=== PATIENT | female | born 1965 | race Caucasian/White ===

== ENCOUNTER 2021-07-09 13:33 | Inpatient (IN) | payer BC ==
[~2021-07-09] VITALS: Ht 160 cm; Wt 56.9 kg
[2021-07-09 15:37] VITALS: BP 129/79
[2021-07-09 15:55] VITALS: BP 129/79
[2021-07-09] MEDS ORDERED: COR25 PO (16:30)
[2021-07-09] MEDS ORDERED: DEXTROSE 50% WATER 50ML SYRINGE IV PRN (16:30)
[2021-07-09] MEDS ORDERED: MORPHINE SULFATE 2 MG/ML CPJ (NOT FOR IM USE) IV PRN (16:30)
[2021-07-09] MEDS ORDERED: DOCUSATE SODIUM 100MG CAPSULE PO PRN (16:30)
[2021-07-09] MEDS ORDERED: MAGNESIUM/ALUMINUM HYDROXIDE/SIMETHICONE 30ML UDC PO PRN (16:30)
[2021-07-09] MEDS ORDERED: ZOLPIDEM TARTRATE 5MG TABLET PO PRN (16:30)
[2021-07-09] MEDS ORDERED: AMLO5TAB88 PO (16:30)
[2021-07-09] MEDS ORDERED: ACETAMINOPHEN 325MG TABLET PO PRN ×2 (16:30)
[2021-07-09] MEDS ORDERED: ONDANSETRON HCL 4MG/2ML INJ IV PRN (16:30)
[2021-07-09] MEDS ORDERED: NITROGLYCERIN 0.4MG TABLET SL SL PRN ×2 (16:30→19:00)
[2021-07-09] MEDS ORDERED: BENA40TA9 PO (16:30)
[2021-07-09] MEDS ORDERED: SITA1TAB6 PO (16:30)
[2021-07-09] MEDS ORDERED: GUAIFENESIN 200MG/10ML SUGAR FREE UDC PO PRN (16:30)
[2021-07-09] MEDS ORDERED: CLONIDINE 0.1MG TABLET PO PRN (16:30)
[2021-07-09] MEDS ORDERED: LOVA40TA73 PO (16:30)
[2021-07-09] MEDS ORDERED: EMPA10TA PO (16:30)
[2021-07-09] MEDS ORDERED: IPRATROPIUM/ALBUTEROL 0.5-3(2.5)MG/3ML NEB NEB PRN (16:30)
[2021-07-09] MEDS: BLOOD SUGAR DIAGNOSTIC STRIP TEST SCH ×2 (16:50→21:00)
[2021-07-09] MEDS ORDERED: CARVEDILOL 25 MG PO SCH (17:00)
[2021-07-09 17:16] LABS: BASOPHILS % 1.1 % (0.0-2.0); EOSINOPHILS % 2.4 % (0.0-5.0); HEMATOCRIT. 41.3 % (36.0-48.0); HEMOGLOBIN. 13.8 g/dL (12.0-16.0); LYMPHOCYTES % 29.2 % (20.0-50.0); MEAN CORPUSCULAR VOLUME 83.5 fL (81.0-99.0); MEAN PLATELET VOLUME 9.3 fl (7.4-10.4); MONOCYTES % 9.7 % (2.0-8.0); NEUTROPHILS % 57.6 % (40.0-76.0); PLATELET 179 x1000/uL (130-400); RED BLOOD CELL COUNT 4.94 mill/uL (4.2-5.4)
[2021-07-09] MEDS: INSULIN LISPRO 100 UNITS/ML SUBCUT SCH ×2 (17:20→21:00)
[2021-07-09 17:26] LABS: INR 1.1; PROTHROMBIN TIME 11.6 sec (9.6-11.0)
[2021-07-09 18:13] LABS: CHLORIDE 107 mEq/L (98-107)
[2021-07-09 18:32] VITALS: BP 130/74
[2021-07-09] MEDS ORDERED: ALPRAZOLAM 0.25 MG TABLET PO PRN (19:00)
[2021-07-09 20:00] VITALS: BP 123/70
[2021-07-09] MEDS ORDERED: ENOXAPARIN 40MG/0.4ML SYR SUBCUT SCH (20:00)
[2021-07-09] MEDS: CARVEDILOL 12.5MG TABLET PO SCH (20:59)
[2021-07-09] MEDS: FAMOTIDINE 20MG TABLET PO SCH (21:00)
[2021-07-09] MEDS: ALLOPURINOL 300 MG TABLET PO SCH (21:00)
[2021-07-09] MEDS ORDERED: CHLORHEXIDINE GLUCONATE 4% EXTERNAL USE TOP SCH (21:00)
[2021-07-09] MEDS ORDERED: DOCUSATE SODIUM 100MG CAPSULE PO SCH (21:00)
[2021-07-09] MEDS ORDERED: BISACODYL 10MG SUPP PR PRN (21:00)
[2021-07-09] MEDS ORDERED: ASCORBIC ACID 500 MG TABLET PO SCH (21:00)
[2021-07-09] MEDS ORDERED: DOBUTAMINE 250 MG in DEXT 5% WATER 230 ML IV NR (22:45)
[2021-07-09] MEDS ORDERED: PAPAVERINE HCL 180MG in SODIUM CHLORIDE 0.9% 24ML IV NR (22:45)
[2021-07-09] MEDS ORDERED: DEL NIDO ELECTROLYTE-S(PH 7.4) 1,000 ML IV NR (22:45)
[2021-07-09] MEDS ORDERED: NOREPINEPHRINE 8 MG in DEXT 5% WATER 242 ML IV NR (22:45)
[2021-07-10] VITALS (42 sets, daily range): BP systolic 0–195; BP diastolic 0–90
[2021-07-10] MEDS ORDERED: AMINOCAPROIC ACID 5,000 MG in SODIUM CHLORIDE 0.9% 230 ML IV NR (01:00)
[2021-07-10] MEDS ORDERED: DEL NIDO ELECTROLYTE-S(PH 7.4) 1,000 ML IV NR (01:00)
[2021-07-10] MEDS ORDERED: CEFAZOLIN 2,000 MG in DEXT 5% WATER 100 ML IV NR (01:00)
[2021-07-10] MEDS ORDERED: EPINEPHRINE 5 MG in DEXT 5% WATER 245 ML IV NR (01:00)
[2021-07-10] MEDS ORDERED: BLOOD SUGAR DIAGNOSTIC STRIP TEST ONE (04:00)
[2021-07-10] MEDS ORDERED: CEFAZOLIN 2,000 MG in DEXT 5% WATER 100 ML IV ONE (05:00)
[2021-07-10] MEDS ORDERED: CHLORHEXIDINE GLUCONATE 4% EXTERNAL USE TOP SCH (06:00)
[2021-07-10] MEDS ORDERED: THROMBIN (BOVINE) 5000 UNITS/VIAL TOP ONE ×3 (06:15→06:17)
[2021-07-10] MEDS ORDERED: SKIN ADHESIVE 0.7 GM EA TOP ONE (06:15)
[2021-07-10] MEDS: ALLOPURINOL 300 MG TABLET PO SCH (06:16)
[2021-07-10] MEDS ORDERED: POLYMYXIN B SULFATE 500000 UNITS/VIAL ONE (06:17)
[2021-07-10] MEDS ORDERED: NICARDIPINE 40MG/200ML PREMIX 200 ML IV ONE (06:29)
[2021-07-10] MEDS ORDERED: DOPAMINE 400MG/250ML PREMIX 250 ML IV ONE (06:29)
[2021-07-10] MEDS: BLOOD SUGAR DIAGNOSTIC STRIP TEST SCH ×12 (06:50→23:15)
[2021-07-10] MEDS ORDERED: MORPHINE SULFATE/PF 1MG/ML 10ML AMP ONE (07:10)
[2021-07-10] MEDS: INSULIN LISPRO 100 UNITS/ML SUBCUT SCH (07:20)
[2021-07-10] MEDS ORDERED: PROPOFOL 10MG/ML 100ML 100 ML IV ONE (07:56)
[2021-07-10] MEDS ORDERED: AMINOCAPROIC ACID 250 MG/ML 20ML VIAL ONE (07:57)
[2021-07-10] MEDS ORDERED: CALCIUM CHLORIDE 1GM/10ML SYR IV ONE ×2 (07:57→11:27)
[2021-07-10] MEDS ORDERED: POTASSIUM CHLORIDE 40MEQ/20ML INJ IV ONE (08:01)
[2021-07-10] MEDS ORDERED: HEPARIN 1000 UNITS/ML 10ML ONE ×2 (08:16→09:17)
[2021-07-10] MEDS ORDERED: ASPIRIN 325MG EC TABLET PO SCH (09:00)
[2021-07-10] MEDS: AMLODIPINE 5MG TABLET PO SCH (09:00)
[2021-07-10] MEDS ORDERED: MEDICATION NOT ON FORMULARY EA (Benazepril Hcl 40 MG) PO SCH (09:00)
[2021-07-10] MEDS: FAMOTIDINE 20MG TABLET PO SCH (09:00)
[2021-07-10] MEDS: BENAZEPRIL 10MG TABLET PO SCH (09:00)
[2021-07-10] MEDS: ASPIRIN 81MG EC TABLET PO SCH (09:00)
[2021-07-10] MEDS: CARVEDILOL 12.5MG TABLET PO SCH (09:00)
[2021-07-10] MEDS ORDERED: VECURONIUM BROMIDE 10 MG/VIAL IV ONE (09:35)
[2021-07-10] MEDS ORDERED: DEXAMETHASONE 4MG/ML 1ML VIAL ONE (09:35)
[2021-07-10] MEDS ORDERED: ROCURONIUM BROMIDE 10MG/ML VIAL 5ML IV ONE (09:35)
[2021-07-10] MEDS ORDERED: KCL 10MEQ/50ML PREMIX 150 ML IV PRN (10:45)
[2021-07-10] MEDS ORDERED: MAGNESIUM 2 G PREMIX 50 ML IV PRN ×2 (10:45→13:15)
[2021-07-10] MEDS ORDERED: MAGNESIUM SULFATE 3 GM in DEXT 5% WATER 100 ML IV PRN ×2 (10:45→13:15)
[2021-07-10] MEDS ORDERED: PROTAMINE SULFATE 10MG/ML VIAL 25ML IV ONE (11:27)
[2021-07-10] MEDS ORDERED: DEXMEDETOMIDINE 400 MCG/100 ML 100 ML IV ONE (12:00)
[2021-07-10] MEDS ORDERED: BUPIVACAINE HCL/PF 0.25% (2.5MG/ML) 10ML ONE (12:03)
[2021-07-10] MEDS ORDERED: GLYCOPYRROLATE 0.2 MG/ML 2ML VIAL ONE (12:17)
[2021-07-10] MEDS ORDERED: NEOSTIGMINE METHYLSULFATE 1MG/ML 10 ML VIAL ONE (12:17)
[2021-07-10 12:37] LABS: BASOPHILS % 0.2 % (0.0-2.0); EOSINOPHILS % 0.6 % (0.0-5.0); HEMATOCRIT. 28.4 % (36.0-48.0); HEMOGLOBIN. 9.8 g/dL (12.0-16.0); LYMPHOCYTES % 12.2 % (20.0-50.0); MEAN CORPUSCULAR HEMOGLOBIN 28.4 pg (28.0-32.0); MEAN CORPUSCULAR VOLUME 82.1 fL (81.0-99.0); MEAN PLATELET VOLUME 9.7 fl (7.4-10.4); MONOCYTES % 6.8 % (2.0-8.0); NEUTROPHILS % 80.2 % (40.0-76.0); PLATELET 129 x1000/uL (130-400); RED BLOOD CELL COUNT 3.45 mill/uL (4.2-5.4)
[2021-07-10] MEDS ORDERED: ALBUTEROL 90MCG/PUFF 17GM INHALER INH ONE (12:40)
[2021-07-10 12:57] LABS: INR 1.1; PARTIAL THROMBOPLASTIN TIME 34.9 sec (23.4-31.0); PROTHROMBIN TIME 12.2 sec (9.6-11.0)
[2021-07-10] MEDS ORDERED: OXYCODONE HCL/ACETAMINOPHEN 5/325MG TABLET PO PRN ×2 (13:15)
[2021-07-10] MEDS: DOCUSATE SODIUM 100MG CAPSULE PO SCH ×2 (13:15→18:08)
[2021-07-10] MEDS ORDERED: DEXTROSE 50% WATER 50ML SYRINGE IV PRN ×2 (13:15)
[2021-07-10] MEDS ORDERED: SODIUM CHLORIDE 0.9% 500 ML IV PRN (13:15)
[2021-07-10] MEDS ORDERED: ACETAMINOPHEN 325MG TABLET PO PRN (13:15)
[2021-07-10] MEDS ORDERED: MAGNESIUM 1 G PREMIX 100 ML IV PRN (13:15)
[2021-07-10] MEDS ORDERED: MORPHINE SULFATE 2 MG/ML CPJ (NOT FOR IM USE) IV PRN (13:15)
[2021-07-10] MEDS ORDERED: ONDANSETRON HCL 4MG/2ML INJ IV PRN (13:15)
[2021-07-10] MEDS ORDERED: FUROSEMIDE 20MG/2ML VIAL ONE (13:17)
[2021-07-10 13:26] LABS: BG BASE EXCESS -1.5 mmol/L (-2.0-2.0); BG CARBOXYHEMOGLOBIN 0.7 % (0.5-1.5); BG DEOXYHEMOGLOBIN 19.1 % (0.0-5.0); BG HCO3 ACT 24.6 mmol/L (22.0-26.0); BG METHEMOGLOBIN 0.4 % (0.0-1.5); BG OXYGEN SATURATION 80.7 % (92.0-98.5); BG OXYHEMOGLOBIN 79.8 % (94.0-97.0); BG PCO2 46.9 mmHg (35.0-45.0); BG PH 7.337 (7.350-7.450); BG SAMPLE SITE ALINE; BG TOTAL HEMOGLOBIN 11.3 g/dL (12.0-18.0); BG VENT MODE MASK - BIPAP
[2021-07-10] MEDS: IPRATROPIUM/ALBUTEROL 0.5-3(2.5)MG/3ML NEB HHN SCH ×2 (13:30→20:51)
[2021-07-10 13:35] LABS: BASOPHILS % 0.5 % (0.0-2.0); EOSINOPHILS % 0.2 % (0.0-5.0); HEMATOCRIT. 30.2 % (36.0-48.0); HEMOGLOBIN. 10.3 g/dL (12.0-16.0); LYMPHOCYTES % 9.1 % (20.0-50.0); MEAN CORPUSCULAR HEMOGLOBIN 28.1 pg (28.0-32.0); MEAN CORPUSCULAR VOLUME 82.5 fL (81.0-99.0); MEAN PLATELET VOLUME 9.4 fl (7.4-10.4); MONOCYTES % 6.3 % (2.0-8.0); NEUTROPHILS % 83.9 % (40.0-76.0); PLATELET 131 x1000/uL (130-400); RED BLOOD CELL COUNT 3.66 mill/uL (4.2-5.4)
[2021-07-10 13:42] LABS: CHLORIDE 114 mEq/L (98-107)
[2021-07-10 13:50] LABS: PHOSPHORUS 2.8 mg/dL (2.5-4.9)
[2021-07-10 13:51] LABS: LDL CHOLESTEROL 49 mg/dL (5-100)
[2021-07-10 13:53] LABS: HDL CHOLESTEROL 47 mg/dL (40-59)
[2021-07-10] MEDS: MAGNESIUM HYDROXIDE 400MG/5ML 30ML UDC PO SCH ×3 (14:00→22:42)
[2021-07-10 14:26] LABS: BG BASE EXCESS -2.9 mmol/L (-2.0-2.0); BG CARBOXYHEMOGLOBIN 0.5 % (0.5-1.5); BG DEOXYHEMOGLOBIN 7.1 % (0.0-5.0); BG FRACTION INSPIRED OXYGEN 100; BG HCO3 ACT 22.9 mmol/L (22.0-26.0); BG METHEMOGLOBIN 0.3 % (0.0-1.5); BG OXYGEN SATURATION 92.8 % (92.0-98.5); BG OXYHEMOGLOBIN 92.1 % (94.0-97.0); BG PCO2 44.1 mmHg (35.0-45.0); BG PH 7.334 (7.350-7.450); BG PO2 74.2 mmHg (75.0-100.0); BG SAMPLE SITE ALINE; BG TOTAL HEMOGLOBIN 11.7 g/dL (12.0-18.0); BG VENT MODE MASK - BIPAP
[2021-07-10] MEDS: DOPAMINE 400MG/250ML PREMIX 250 ML IV PRN (14:27)
[2021-07-10] MEDS: DEXT 5%/0.45% NACL 1000ML 1,000 ML IV SCH (14:27)
[2021-07-10] MEDS: INSULIN REGULAR (DRIP) 100 UNITS in SODIUM CHLORIDE 0.9% 99 ML IV NR ×2 (14:28→22:23)
[2021-07-10] MEDS: ALBUMIN HUMAN 12.5G/250ML (5%) IV PRN (15:42)
[2021-07-10 16:06] LABS: BG BASE EXCESS -1.7 mmol/L (-2.0-2.0); BG CARBOXYHEMOGLOBIN 0.3 % (0.5-1.5); BG DEOXYHEMOGLOBIN 1.1 % (0.0-5.0); BG HCO3 ACT 23.4 mmol/L (22.0-26.0); BG METHEMOGLOBIN 0.6 % (0.0-1.5); BG OXYGEN SATURATION 98.9 % (92.0-98.5); BG PCO2 41.4 mmHg (35.0-45.0); BG PH 7.371 (7.350-7.450); BG PO2 285.1 mmHg (75.0-100.0); BG SAMPLE SITE ALINE; BG TOTAL HEMOGLOBIN 11.1 g/dL (12.0-18.0); BG VENT MODE MASK - BIPAP
[2021-07-10] MEDS: CEFAZOLIN 1000MG PREMIX 50 ML IV SCH (16:09)
[2021-07-10 17:59] LABS: BG BASE EXCESS -2.2 mmol/L (-2.0-2.0); BG DEOXYHEMOGLOBIN 4.9 % (0.0-5.0); BG FRACTION INSPIRED OXYGEN 40; BG HCO3 ACT 23.3 mmol/L (22.0-26.0); BG METHEMOGLOBIN 0.4 % (0.0-1.5); BG OXYGEN SATURATION 95.1 % (92.0-98.5); BG OXYHEMOGLOBIN 94.7 % (94.0-97.0); BG PCO2 43.3 mmHg (35.0-45.0); BG PH 7.349 (7.350-7.450); BG PO2 85.2 mmHg (75.0-100.0); BG SAMPLE SITE ALINE; BG TOTAL HEMOGLOBIN 9.8 g/dL (12.0-18.0); BG VENT MODE MASK - VENTI
[2021-07-10] MEDS ORDERED: ALBUMIN HUMAN 12.5G/250ML (5%) IV NR (18:45)
[2021-07-10 19:05] LABS: HEMATOCRIT. 26.6 % (36.0-48.0); HEMOGLOBIN. 9.3 g/dL (12.0-16.0); MEAN CORPUSCULAR VOLUME 83.3 fL (81.0-99.0); MEAN PLATELET VOLUME 10.1 fl (7.4-10.4); PLATELET 96 x1000/uL (130-400); RED BLOOD CELL COUNT 3.19 mill/uL (4.2-5.4); RED CELL DISTRIBUTION WIDTH 13.8 % (11.6-14.6)
[2021-07-10 19:24] LABS: CHLORIDE 114 mEq/L (98-107); PHOSPHORUS 3.9 mg/dL (2.5-4.9)
[2021-07-10] MEDS: KCL 10MEQ/50ML PREMIX 100 ML IV PRN (20:02)
[2021-07-10 20:05] LABS: PLATELET ESTIMATE DECREASED
[2021-07-11] VITALS (111 sets, daily range): BP systolic 79–169; BP diastolic 34–84
[2021-07-11] MEDS: BLOOD SUGAR DIAGNOSTIC STRIP TEST SCH ×18 (00:15→22:00)
[2021-07-11] MEDS: CEFAZOLIN 1000MG PREMIX 50 ML IV SCH ×3 (01:15→16:12)
[2021-07-11] MEDS: MAGNESIUM HYDROXIDE 400MG/5ML 30ML UDC PO SCH ×4 (02:00→15:01)
[2021-07-11] MEDS: ALBUMIN HUMAN 12.5G/250ML (5%) IV PRN (02:09)
[2021-07-11] MEDS: IPRATROPIUM/ALBUTEROL 0.5-3(2.5)MG/3ML NEB HHN SCH ×5 (02:25→20:26)
[2021-07-11 05:01] LABS: BG BASE EXCESS -1.9 mmol/L (-2.0-2.0); BG CARBOXYHEMOGLOBIN 0.3 % (0.5-1.5); BG DEOXYHEMOGLOBIN 10.7 % (0.0-5.0); BG FRACTION INSPIRED OXYGEN 50; BG HCO3 ACT 22.1 mmol/L (22.0-26.0); BG METHEMOGLOBIN 0.3 % (0.0-1.5); BG OXYGEN SATURATION 89.2 % (92.0-98.5); BG OXYHEMOGLOBIN 88.7 % (94.0-97.0); BG PCO2 34.6 mmHg (35.0-45.0); BG PH 7.423 (7.350-7.450); BG PO2 58.8 mmHg (75.0-100.0); BG SAMPLE SITE ALINE; BG TOTAL HEMOGLOBIN 9.6 g/dL (12.0-18.0); BG VENT MODE MASK - VENTI
[2021-07-11 05:45] LABS: HEMATOCRIT. 23.2 % (36.0-48.0); HEMOGLOBIN. 7.9 g/dL (12.0-16.0); MEAN CORPUSCULAR VOLUME 82.2 fL (81.0-99.0); MEAN PLATELET VOLUME 10.3 fl (7.4-10.4); PLATELET 86 x1000/uL (130-400); RED BLOOD CELL COUNT 2.82 mill/uL (4.2-5.4); RED CELL DISTRIBUTION WIDTH 14.1 % (11.6-14.6)
[2021-07-11 05:46] LABS: CHLORIDE 111 mEq/L (98-107)
[2021-07-11 05:52] LABS: PHOSPHORUS 4.1 mg/dL (2.5-4.9)
[2021-07-11 08:05] LABS: PLATELET ESTIMATE DECREASED
[2021-07-11] MEDS: FAMOTIDINE 20MG/2ML VIAL IV SCH (08:41)
[2021-07-11] MEDS: BENAZEPRIL 10MG TABLET PO SCH (08:49)
[2021-07-11] MEDS: AMLODIPINE 5MG TABLET PO SCH (08:50)
[2021-07-11 08:54] LABS: BG BASE EXCESS -0.8 mmol/L (-2.0-2.0); BG CARBOXYHEMOGLOBIN 0.3 % (0.5-1.5); BG DEOXYHEMOGLOBIN 6.3 % (0.0-5.0); BG FRACTION INSPIRED OXYGEN 50; BG HCO3 ACT 22.8 mmol/L (22.0-26.0); BG METHEMOGLOBIN 0.3 % (0.0-1.5); BG OXYGEN SATURATION 93.7 % (92.0-98.5); BG OXYHEMOGLOBIN 93.1 % (94.0-97.0); BG PCO2 33.2 mmHg (35.0-45.0); BG PH 7.455 (7.350-7.450); BG PO2 68.7 mmHg (75.0-100.0); BG SAMPLE SITE ALINE; BG VENT MODE MASK - SIMPLE
[2021-07-11] MEDS: KCL 10MEQ/50ML PREMIX 100 ML IV PRN ×2 (08:54→21:41)
[2021-07-11] MEDS: ASPIRIN 81MG EC TABLET PO SCH ×2 (09:00→12:12)
[2021-07-11] MEDS: DOCUSATE SODIUM 100MG CAPSULE PO SCH ×2 (09:00→18:05)
[2021-07-11] MEDS: DEXT 5%/0.45% NACL 1000ML 1,000 ML IV SCH (09:23)
[2021-07-11] MEDS ORDERED: FUROSEMIDE 20MG/2ML VIAL IVP NR (13:00)
[2021-07-11] MEDS: IRON SUCROSE COMPLEX 100 MG/5 ML ML IV SCH (13:40)
[2021-07-11] MEDS ORDERED: BLOOD SUGAR DIAGNOSTIC STRIP TEST SCH (14:00)
[2021-07-11 17:05] LABS: BG BASE EXCESS 1.4 mmol/L (-2.0-2.0); BG CARBOXYHEMOGLOBIN 0.3 % (0.5-1.5); BG DEOXYHEMOGLOBIN 4.5 % (0.0-5.0); BG FRACTION INSPIRED OXYGEN 100; BG HCO3 ACT 24.8 mmol/L (22.0-26.0); BG METHEMOGLOBIN 0.5 % (0.0-1.5); BG OXYGEN SATURATION 95.5 % (92.0-98.5); BG OXYHEMOGLOBIN 94.7 % (94.0-97.0); BG PCO2 33.9 mmHg (35.0-45.0); BG PH 7.482 (7.350-7.450); BG PO2 81.1 mmHg (75.0-100.0); BG SAMPLE SITE ALINE; BG TOTAL HEMOGLOBIN 8.7 g/dL (12.0-18.0); BG VENT MODE MASK - NRB
[2021-07-11 17:19] LABS: BASOPHILS % 0.3 % (0.0-2.0); HEMATOCRIT. 23.8 % (36.0-48.0); HEMOGLOBIN. 8.1 g/dL (12.0-16.0); LYMPHOCYTES % 13.5 % (20.0-50.0); MEAN CORPUSCULAR HEMOGLOBIN 28.4 pg (28.0-32.0); MEAN CORPUSCULAR VOLUME 83.7 fL (81.0-99.0); MEAN PLATELET VOLUME 9.9 fl (7.4-10.4); MONOCYTES % 4.8 % (2.0-8.0); NEUTROPHILS % 81.4 % (40.0-76.0); PLATELET 79 x1000/uL (130-400); RED BLOOD CELL COUNT 2.85 mill/uL (4.2-5.4); RED CELL DISTRIBUTION WIDTH 14.3 % (11.6-14.6)
[2021-07-11 17:23] LABS: CHLORIDE 104 mEq/L (98-107)
[2021-07-11] MEDS ORDERED: FUROSEMIDE 40MG/4ML VIAL IVP NR (18:30)
[2021-07-11] MEDS ORDERED: EPOETIN ALFA-EPBX 4,000 UNIT/ML VIAL SUBCUT SCH ×2 (21:00)
[2021-07-11] MEDS: INSULIN REGULAR 100U/100ML PMX 100 ML IV SCH (22:45)
[2021-07-12] VITALS (123 sets, daily range): BP systolic 92–161; BP diastolic 41–87
[2021-07-12] MEDS: IPRATROPIUM/ALBUTEROL 0.5-3(2.5)MG/3ML NEB HHN SCH ×6 (00:05→20:57)
[2021-07-12] MEDS: BLOOD SUGAR DIAGNOSTIC STRIP TEST SCH ×12 (02:00→22:00)
[2021-07-12] MEDS: DEXT 5%/0.45% NACL 1000ML 1,000 ML IV SCH ×2 (05:18→08:13)
[2021-07-12 06:09] LABS: BASOPHILS % 0.3 % (0.0-2.0); EOSINOPHILS % 0.1 % (0.0-5.0); HEMATOCRIT. 22.8 % (36.0-48.0); HEMOGLOBIN. 7.7 g/dL (12.0-16.0); LYMPHOCYTES % 13.2 % (20.0-50.0); MEAN CORPUSCULAR HEMOGLOBIN 28.4 pg (28.0-32.0); MEAN CORPUSCULAR VOLUME 84.1 fL (81.0-99.0); NEUTROPHILS % 74.4 % (40.0-76.0); PLATELET 92 x1000/uL (130-400); RED BLOOD CELL COUNT 2.71 mill/uL (4.2-5.4); RED CELL DISTRIBUTION WIDTH 14.3 % (11.6-14.6)
[2021-07-12 06:17] LABS: CHLORIDE 108 mEq/L (98-107)
[2021-07-12 06:24] LABS: PHOSPHORUS 2.9 mg/dL (2.5-4.9)
[2021-07-12] MEDS: MAGNESIUM 1 G PREMIX 100 ML IV PRN (07:23)
[2021-07-12] MEDS ORDERED: KCL 20MEQ/100ML PREMIX 100 ML IV NR (07:30)
[2021-07-12] MEDS: DOPAMINE 400MG/250ML PREMIX 250 ML IV PRN (07:41)
[2021-07-12] MEDS ORDERED: FUROSEMIDE 40MG/4ML VIAL IVP SCH ×2 (08:15→15:00)
[2021-07-12 08:59] LABS: BG BASE EXCESS 1.5 mmol/L (-2.0-2.0); BG DEOXYHEMOGLOBIN 7.9 % (0.0-5.0); BG FRACTION INSPIRED OXYGEN 100; BG HCO3 ACT 25.1 mmol/L (22.0-26.0); BG METHEMOGLOBIN 0.2 % (0.0-1.5); BG OXYGEN SATURATION 92.1 % (92.0-98.5); BG OXYHEMOGLOBIN 91.9 % (94.0-97.0); BG PCO2 35.1 mmHg (35.0-45.0); BG PH 7.472 (7.350-7.450); BG PO2 68.2 mmHg (75.0-100.0); BG SAMPLE SITE ALINE; BG TOTAL HEMOGLOBIN 8.3 g/dL (12.0-18.0); BG VENT MODE MASK - NRB
[2021-07-12] MEDS: BENAZEPRIL 10MG TABLET PO SCH (09:00)
[2021-07-12] MEDS: AMLODIPINE 5MG TABLET PO SCH (09:00)
[2021-07-12] MEDS: DOCUSATE SODIUM 100MG CAPSULE PO SCH ×2 (09:50→17:33)
[2021-07-12] MEDS: ASPIRIN 81MG EC TABLET PO SCH (09:50)
[2021-07-12] MEDS: FAMOTIDINE 20MG/2ML VIAL IV SCH (09:50)
[2021-07-12] MEDS: ACETAMINOPHEN 325MG TABLET PO PRN (10:29)
[2021-07-12] MEDS: IRON SUCROSE COMPLEX 100 MG/5 ML ML IV SCH (13:19)
[2021-07-12] MEDS: CLOPIDOGREL 75MG TABLET PO SCH (19:19)
[2021-07-12] MEDS: LACTULOSE 20G/30ML UDC PO SCH (19:19)
[2021-07-12 21:20] LABS: HEMATOCRIT 34.1 % (36.0-48.0); HEMOGLOBIN 11.6 g/dL (12.0-16.0); MEAN CORPUSCULAR HEMOGLOBIN 28.4 pg (28.0-32.0); MEAN CORPUSCULAR VOLUME 83.4 fL (81.0-99.0); PLATELET 94 x1000/uL (130-400); RED BLOOD CELL COUNT 4.09 mill/uL (4.2-5.4); RED CELL DISTRIBUTION WIDTH 14.2 % (11.6-14.6)
[2021-07-12 21:29] LABS: CHLORIDE 105 mEq/L (98-107)
[2021-07-12] MEDS: INSULIN REGULAR 100U/100ML PMX 100 ML IV SCH (22:59)
[2021-07-13] VITALS (76 sets, daily range): BP systolic 96–177; BP diastolic 44–93
[2021-07-13] MEDS: KCL 10MEQ/50ML PREMIX 200 ML IV PRN (01:01)
[2021-07-13] MEDS: DEXT 5%/0.45% NACL 1000ML 1,000 ML IV SCH (01:04)
[2021-07-13] MEDS: BLOOD SUGAR DIAGNOSTIC STRIP TEST SCH ×8 (02:00→21:12)
[2021-07-13] MEDS: LACTULOSE 20G/30ML UDC PO SCH ×6 (04:00→20:00)
[2021-07-13] MEDS: IPRATROPIUM/ALBUTEROL 0.5-3(2.5)MG/3ML NEB HHN SCH ×4 (04:27→21:18)
[2021-07-13 07:53] LABS: BASOPHILS % 0.2 % (0.0-2.0); HEMATOCRIT. 32.8 % (36.0-48.0); LYMPHOCYTES % 14.1 % (20.0-50.0); MEAN CORPUSCULAR HEMOGLOBIN 28.8 pg (28.0-32.0); MEAN PLATELET VOLUME 9.7 fl (7.4-10.4); MONOCYTES % 10.5 % (2.0-8.0); NEUTROPHILS % 74.2 % (40.0-76.0); PLATELET 107 x1000/uL (130-400); RED BLOOD CELL COUNT 3.95 mill/uL (4.2-5.4); RED CELL DISTRIBUTION WIDTH 14.4 % (11.6-14.6)
[2021-07-13 08:01] LABS: HEMOGLOBIN. 11.4 g/dL (12.0-16.0)
[2021-07-13 08:07] LABS: CHLORIDE 108 mEq/L (98-107)
[2021-07-13 08:09] LABS: BG CARBOXYHEMOGLOBIN 0.3 % (0.5-1.5); BG DEOXYHEMOGLOBIN 3.8 % (0.0-5.0); BG FRACTION INSPIRED OXYGEN 100; BG HCO3 ACT 23.5 mmol/L (22.0-26.0); BG METHEMOGLOBIN 0.2 % (0.0-1.5); BG OXYGEN SATURATION 96.2 % (92.0-98.5); BG OXYHEMOGLOBIN 95.7 % (94.0-97.0); BG PCO2 30.9 mmHg (35.0-45.0); BG PH 7.499 (7.350-7.450); BG PO2 85.6 mmHg (75.0-100.0); BG SAMPLE SITE ALINE; BG TOTAL HEMOGLOBIN 12.1 g/dL (12.0-18.0); BG VENT MODE MASK - NRB
[2021-07-13 08:16] LABS: PHOSPHORUS 3.4 mg/dL (2.5-4.9)
[2021-07-13] MEDS ORDERED: DEXTROSE 50% WATER 50ML SYRINGE IV PRN ×3 (08:30)
[2021-07-13] MEDS ORDERED: FUROSEMIDE 40MG/4ML VIAL IVP NR ×2 (08:44→21:15)
[2021-07-13] MEDS: ASPIRIN 81MG EC TABLET PO SCH (09:19)
[2021-07-13] MEDS: ACETAMINOPHEN 325MG TABLET PO PRN ×3 (09:19→18:44)
[2021-07-13] MEDS: DOCUSATE SODIUM 100MG CAPSULE PO SCH ×2 (09:20→16:24)
[2021-07-13] MEDS: BENAZEPRIL 10MG TABLET PO SCH (09:20)
[2021-07-13] MEDS: CLOPIDOGREL 75MG TABLET PO SCH (09:20)
[2021-07-13] MEDS: FAMOTIDINE 20MG/2ML VIAL IV SCH (09:21)
[2021-07-13] MEDS: AMLODIPINE 5MG TABLET PO SCH (09:21)
[2021-07-13] MEDS: MAGNESIUM 1 G PREMIX 100 ML IV PRN (09:42)
[2021-07-13] MEDS ORDERED: BLOOD SUGAR DIAGNOSTIC STRIP TEST SCH (12:50)
[2021-07-13] MEDS: INSULIN LISPRO 100 UNITS/ML SUBCUT SCH ×3 (13:38→21:00)
[2021-07-13] MEDS: IRON SUCROSE COMPLEX 100 MG/5 ML ML IV SCH (14:17)
[2021-07-13] MEDS ORDERED: VANCOMYCIN 1250MG in DEXTROSE 5% WATER 250ML IV NR (22:15)
[2021-07-13] MEDS ORDERED: VANCOMYCIN 1.25GM PMX (XELLIA) 250 ML IV NR (22:18)
[2021-07-14] VITALS (50 sets, daily range): BP systolic 101–158; BP diastolic 65–128
[2021-07-14] MEDS: IPRATROPIUM/ALBUTEROL 0.5-3(2.5)MG/3ML NEB HHN SCH ×6 (00:31→21:45)
[2021-07-14] MEDS: LACTULOSE 20G/30ML UDC PO SCH ×3 (03:46→08:00)
[2021-07-14 05:28] LABS: BASOPHILS % 0.3 % (0.0-2.0); EOSINOPHILS % 0.2 % (0.0-5.0); HEMATOCRIT. 32.9 % (36.0-48.0); HEMOGLOBIN. 11.3 g/dL (12.0-16.0); LYMPHOCYTES % 14.4 % (20.0-50.0); MEAN CORPUSCULAR HEMOGLOBIN 28.6 pg (28.0-32.0); MEAN CORPUSCULAR VOLUME 83.7 fL (81.0-99.0); MEAN PLATELET VOLUME 9.4 fl (7.4-10.4); MONOCYTES % 12.7 % (2.0-8.0); NEUTROPHILS % 72.4 % (40.0-76.0); PLATELET 138 x1000/uL (130-400); RED BLOOD CELL COUNT 3.94 mill/uL (4.2-5.4); RED CELL DISTRIBUTION WIDTH 14.4 % (11.6-14.6)
[2021-07-14 06:21] LABS: CHLORIDE 105 mEq/L (98-107)
[2021-07-14] MEDS: ACETAMINOPHEN 325MG TABLET PO PRN (06:37)
[2021-07-14] MEDS ORDERED: MAGNESIUM SULFATE 3 GM in DEXT 5% WATER 100 ML IV PRN (07:15)
[2021-07-14] MEDS: BLOOD SUGAR DIAGNOSTIC STRIP TEST SCH ×4 (08:10→21:04)
[2021-07-14] MEDS: AMLODIPINE 5MG TABLET PO SCH (08:20)
[2021-07-14] MEDS: CLOPIDOGREL 75MG TABLET PO SCH (08:20)
[2021-07-14] MEDS: DOCUSATE SODIUM 100MG CAPSULE PO SCH ×2 (08:21→17:22)
[2021-07-14] MEDS: FAMOTIDINE 20MG/2ML VIAL IV SCH (08:21)
[2021-07-14] MEDS: INSULIN LISPRO 100 UNITS/ML SUBCUT SCH ×4 (08:21→21:00)
[2021-07-14] MEDS: ASPIRIN 81MG EC TABLET PO SCH (08:21)
[2021-07-14] MEDS: BENAZEPRIL 10MG TABLET PO SCH (09:00)
[2021-07-14] MEDS: KCL 10MEQ/50ML PREMIX 200 ML IV PRN ×2 (09:25→12:20)
[2021-07-14 09:54] LABS: BG BASE EXCESS 0.7 mmol/L (-2.0-2.0); BG CARBOXYHEMOGLOBIN 0.5 % (0.5-1.5); BG DEOXYHEMOGLOBIN 6.7 % (0.0-5.0); BG FRACTION INSPIRED OXYGEN 21; BG HCO3 ACT 22.6 mmol/L (22.0-26.0); BG METHEMOGLOBIN 0.3 % (0.0-1.5); BG OXYGEN SATURATION 93.2 % (92.0-98.5); BG OXYHEMOGLOBIN 92.5 % (94.0-97.0); BG PCO2 28.2 mmHg (35.0-45.0); BG PH 7.521 (7.350-7.450); BG PO2 65.3 mmHg (75.0-100.0); BG SAMPLE SITE RIGHT RADIAL; BG TOTAL HEMOGLOBIN 12.2 g/dL (12.0-18.0); BG VENT MODE ROOM AIR
[2021-07-14] MEDS: VANCOMYCIN 750 MG in DEXT 5% WATER 250 ML IV SCH ×2 (10:29→21:42)
[2021-07-14] MEDS: IRON SUCROSE COMPLEX 100 MG/5 ML ML IV SCH (14:25)
[2021-07-14] MEDS: IBUPROFEN 800MG TABLET PO PRN (18:13)
[2021-07-15] VITALS (13 sets, daily range): BP systolic 96–135; BP diastolic 58–90
[2021-07-15] MEDS: IPRATROPIUM/ALBUTEROL 0.5-3(2.5)MG/3ML NEB HHN SCH ×5 (05:51→20:44)
[2021-07-15 06:17] LABS: CHLORIDE 107 mEq/L (98-107)
[2021-07-15] MEDS: INSULIN LISPRO 100 UNITS/ML SUBCUT SCH ×4 (07:20→21:00)
[2021-07-15] MEDS: BLOOD SUGAR DIAGNOSTIC STRIP TEST SCH ×4 (07:35→21:49)
[2021-07-15] MEDS: DOCUSATE SODIUM 100MG CAPSULE PO SCH ×2 (08:24→16:20)
[2021-07-15] MEDS: CLOPIDOGREL 75MG TABLET PO SCH (08:25)
[2021-07-15] MEDS: FAMOTIDINE 20MG/2ML VIAL IV SCH (08:25)
[2021-07-15] MEDS: ASPIRIN 81MG EC TABLET PO SCH (08:25)
[2021-07-15] MEDS: AMLODIPINE 5MG TABLET PO SCH (08:26)
[2021-07-15] MEDS: BENAZEPRIL 10MG TABLET PO SCH (10:27)
[2021-07-15] MEDS: VANCOMYCIN 1GM PMX (XELLIA) 200 ML IV SCH ×2 (13:01→21:49)
[2021-07-15] MEDS: IRON SUCROSE COMPLEX 100 MG/5 ML ML IV SCH (14:27)
[2021-07-15] MEDS: IBUPROFEN 800MG TABLET PO PRN (19:58)
[2021-07-16] VITALS (10 sets, daily range): BP systolic 109–152; BP diastolic 64–91
[2021-07-16] MEDS: IPRATROPIUM/ALBUTEROL 0.5-3(2.5)MG/3ML NEB HHN SCH ×5 (00:35→20:28)
[2021-07-16] MEDS: INSULIN LISPRO 100 UNITS/ML SUBCUT SCH ×4 (07:27→21:00)
[2021-07-16] MEDS: BLOOD SUGAR DIAGNOSTIC STRIP TEST SCH ×4 (07:27→21:00)
[2021-07-16] MEDS: ASPIRIN 81MG EC TABLET PO SCH (08:09)
[2021-07-16] MEDS: CLOPIDOGREL 75MG TABLET PO SCH (08:09)
[2021-07-16] MEDS: DOCUSATE SODIUM 100MG CAPSULE PO SCH ×2 (08:09→17:00)
[2021-07-16] MEDS: FAMOTIDINE 20MG/2ML VIAL IV SCH (08:09)
[2021-07-16] MEDS: AMLODIPINE 5MG TABLET PO SCH (08:11)
[2021-07-16] MEDS: VANCOMYCIN 1GM PMX (XELLIA) 200 ML IV SCH ×2 (08:54→20:57)
[2021-07-16] MEDS: BENAZEPRIL 10MG TABLET PO SCH (10:51)
[2021-07-16] MEDS: IBUPROFEN 800MG TABLET PO PRN (20:59)
[2021-07-17] MEDS: IPRATROPIUM/ALBUTEROL 0.5-3(2.5)MG/3ML NEB HHN SCH ×2 (04:07→09:15)
[2021-07-17 06:00] VITALS: BP 132/83
[2021-07-17] MEDS: BLOOD SUGAR DIAGNOSTIC STRIP TEST SCH ×2 (06:46→12:29)
[2021-07-17 07:29] LABS: HEMATOCRIT. 36.1 % (36.0-48.0); HEMOGLOBIN. 11.9 g/dL (12.0-16.0); MEAN CORPUSCULAR HEMOGLOBIN 28.5 pg (28.0-32.0); MEAN CORPUSCULAR VOLUME 86.3 fL (81.0-99.0); MEAN PLATELET VOLUME 9.4 fl (7.4-10.4); PLATELET 141 x1000/uL (130-400); RED BLOOD CELL COUNT 4.19 mill/uL (4.2-5.4); RED CELL DISTRIBUTION WIDTH 14.7 % (11.6-14.6)
[2021-07-17 07:48] LABS: CHLORIDE 111 mEq/L (98-107)
[2021-07-17] MEDS: INSULIN LISPRO 100 UNITS/ML SUBCUT SCH ×2 (07:57→13:02)
[2021-07-17 08:44] LABS: PLATELET ESTIMATE NORMAL
[2021-07-17] MEDS: BENAZEPRIL 10MG TABLET PO SCH (09:00)
[2021-07-17] MEDS: FAMOTIDINE 20MG/2ML VIAL IV SCH (09:19)
[2021-07-17] MEDS: ASPIRIN 81MG EC TABLET PO SCH (09:19)
[2021-07-17] MEDS: AMLODIPINE 5MG TABLET PO SCH (09:21)
[2021-07-17] MEDS: DOCUSATE SODIUM 100MG CAPSULE PO SCH (09:21)
[2021-07-17] MEDS: CLOPIDOGREL 75MG TABLET PO SCH (09:21)
[2021-07-17] MEDS: ACETAMINOPHEN 325MG TABLET PO PRN (09:26)
[2021-07-17] MEDS ORDERED: FAMO-135 MT (11:25)
[2021-07-17] MEDS ORDERED: CLOP-31 MT (11:25)
[2021-07-17 13:33] VITALS: BP 135/68
== END 2021-07-17 14:50 | disposition home or self-care (01) | DRG 235 ==
LOC: 3WST 15:30 → CVICU 07-10 10:33 → 3WST 07-15 01:14 → 5EST 07-15 21:28
PROVIDERS: ADMIT Internal Medicine; ATTEND Internal Medicine
PROC: 021109W Bypass Coronary Artery, Two Arteries from Aorta with Autologous Venous Tissue, Open Approach (ICD-10-PCS; principal; 2021-07-10)
PROC: 02100Z9 Bypass Coronary Artery, One Artery from Left Internal Mammary, Open Approach (ICD-10-PCS; 2021-07-10)
PROC: 0W9B30Z Drainage of Left Pleural Cavity with Drainage Device, Percutaneous Approach (ICD-10-PCS; 2021-07-10)
PROC: 06BQ4ZZ Excision of Left Saphenous Vein, Percutaneous Endoscopic Approach (ICD-10-PCS; 2021-07-10)
PROC: 5A09457 Assistance with Respiratory Ventilation, 24-96 Consecutive Hours, Continuous Positive Airway Pressure (ICD-10-PCS; 2021-07-10)
PROC: 5A1221Z Performance of Cardiac Output, Continuous (ICD-10-PCS; 2021-07-10)
PROC: B24BZZ4 Ultrasonography of Heart with Aorta, Transesophageal (ICD-10-PCS; 2021-07-10)
PROC: 30233N1 Transfusion of Nonautologous Red Blood Cells into Peripheral Vein, Percutaneous Approach (ICD-10-PCS; 2021-07-12)
PROC: 5A09357 Assistance with Respiratory Ventilation, Less than 24 Consecutive Hours, Continuous Positive Airway Pressure (ICD-10-PCS; 2021-07-12)
DX: I25.10 Atherosclerotic heart disease of native coronary artery without angina pectoris (principal); J96.01 Acute respiratory failure with hypoxia; E78.5 Hyperlipidemia, unspecified; E78.00 Pure hypercholesterolemia, unspecified; I10 Essential (primary) hypertension; D64.9 Anemia, unspecified; E11.51 Type 2 diabetes mellitus with diabetic peripheral angiopathy without gangrene; R13.10 Dysphagia, unspecified; I35.1 Nonrheumatic aortic (valve) insufficiency; E87.70 Fluid overload, unspecified; Z20.822 Contact with and (suspected) exposure to COVID-19; Z82.49 Family history of ischemic heart disease and other diseases of the circulatory system; Z79.4 Long term (current) use of insulin
CPT/HCPCS: 36415; 36600; 71045; 80048; 80053; 80061; 80202; 82375; 82805; 82962; 83036; 83735; 84100; 85025; 85027; 85347; 85384; 86850; 86900; 86920; 87426; 93005; 93880; 94640; 94660; 97110; 97116; 97163; 97166; 97530; 97535; C1725; C1729; C1751; C1758; C1769; J0690; J0885; J1100; J1250; J1265; J1644; J1650; J1815; J1940; J2274; J2405; J2440; J2704; J2710; J2720; J3370; J3475; J3480; J3490; J7050; J7060; L3908; P9016; P9041; Q9957